=== PATIENT | male | born 1995 | race African-American/Black ===

== ENCOUNTER 2020-03-15 14:54 | Emergency (ER) | payer SELFPAY ==
[~2020-03-15] VITALS: Ht 170.2 cm; Wt 75.0 kg
[2020-03-15 15:00] VITALS: BP 104/68
== END 2020-03-15 16:08 | disposition left against medical advice (07) ==
LOC: ER 14:54
DX: R41.82 Altered mental status, unspecified (principal); Z00.8 Encounter for other general examination; Z53.21 Procedure and treatment not carried out due to patient leaving prior to being seen by health care provider